=== PATIENT | male | born 1995 | race Caucasian/White ===

== ENCOUNTER 2017-03-18 19:37 | Emergency (ER) | payer BC ==
[~2017-03-18] VITALS: Ht 177.8 cm; Wt 83.9 kg
[~2017-03-18 19:37] MED LIST: AMOX-358 PO; NF-CIPDEC OT; TRAM-42 PO
--- OUTSIDE RECORDS SUMMARY | 2017-03-18 19:42 | XMS REPORT | Continuity of Care Document ---
Author Author [facility] Address Unknown Phone Unavailable Allergies Medications Problems Date Dx Coded Attending Type Code Diagnosis Diagnosed By 12/05/2015 BRENNA JOINER DO Ot H66.93 OTITIS MEDIA, UNSPECIFIED, BILATERAL 12/06/2015 BRENNA JOINER DO Ot H66.93 OTITIS MEDIA, UNSPECIFIED, BILATERAL Procedures Results Encounters ACCT No. Visit Date/Time Discharge Status Pt. Type Provider Facility Loc./Unit Complaint [id number] 11/07/2014 15:19:56 11/07/2014 23: 59:59 CLS Outpatient Brittney Jimenes [id number] 10/31/2014 16:51:53 10/31/2014 23: 59:59 CLS Outpatient Jerica De La Garza [id number] 04/16/2014 13:08:13 04/16/2014 23: 59:59 CLS Outpatient Brittney Jimenes [id number] 12/05/2015 19:58:00 2015 20:35:00 DIS Emergency BRENNA JOINER DO [facility] ER R EAR PAIN
[2017-03-18] MEDS ORDERED: ONDANSETRON 4 MG (ZOFRAN) ORAL DISSOLVE TAB ONE (19:49)
--- NOTE | 2017-03-18 19:51 | ED Lower Extremity ---
General Chief Complaint: Lower Extremity Stated Complaint: LT ANKLE INJ Source: patient Exam Limitations: no limitations History of Present Illness Time seen by provider: 19:50 Initial Comments To ER with pain to the left lateral ankle after playing basketball and inverting the left ankle. He was able to partially bear weight on this after the injury. No other injury. Onset: just prior to arrival Severity: moderate Pain/Injury Location: left ankle Modifying Factors: Worse With Movement Allergies and Home Medications Allergies Coded Allergies: No Known Drug Allergies (Unverified , 03/18/17) Home Medications Amoxicillin/Potassium Clav 1 Each Tablet, 1 EACH PO BID, #20 Prescribed by: BRENNA JOINER on 12/05/152033 Ciprofloxacin HCl/Dexameth 7.5 Ml Soln, 4 DROPS OT BID, #1 Prescribed by: BRENNA JOINER on 12/05/152033 Tramadol HCl 50 Mg Tablet, 50 MG PO Q4H, #20 Prescribed by: BRENNA JOINER on 12/05/152033 Constitutional: see HPI EENTM: see HPI Respiratory: no symptoms reported Cardiovascular: no symptoms reported Genitourinary: no symptoms reported Musculoskeletal: see HPI Skin: no symptoms reported Psychiatric/Neurological: No Symptoms Reported Past Fwwqoyi-Gvduks-Uyzqxk Hx Patient Social History Recent Foreign Travel: No Contact w/Someone Who Travel: No Surgeries HX Surgeries: No Respiratory Hx Respiratory Disorders: No Cardiovascular Hx Cardiac Disorders: No Neurological Hx Neurological Disorders: No Genitourinary Hx Genitourinary Disorders: No Gastrointestinal Hx Gastrointestinal Disorders: No Musculoskeletal Hx Musculoskeletal Disorders: No Endocrine Hx Endocrine Disorders: No HEENT HX ENT Disorders: No Cancer Hx Cancer: No Psychosocial Hx Psychiatric Problems: No Integumentary HX Skin/Integumentary Disorder: No Blood Transfusions Hx Blood Disorders: No Physical Exam Vital Signs Vital Sign - Last 12Hours 03/18/17 19:44 Temp 98.2 Pulse 100 Resp 20 B/P (MAP) 141/91 Pulse Ox 99 O2 Delivery Room Air Capillary Refill : General Appearance: WD/WN, no apparent distress HEENT: PERRL/EOMI, normal ENT inspection Neck: non-tender, full range of motion Respiratory: no respiratory distress, no accessory muscle use Gastrointestinal: normal bowel sounds, non tender, soft Hips: bilateral hip non-tender, bilateral hip normal inspection, bilateral hip normal range of motion Legs: bilateral leg non-tender, bilateral leg normal inspection, bilateral leg normal range of motion Knees: bilateral knee non-tender, bilateral knee normal inspection, bilateral knee normal range of motion Ankles: left ankle pain, left ankle soft tissue tenderness, left ankle swelling Feet: bilateral foot non-tender, bilateral foot normal inspection, bilateral foot normal range of motion, left foot other (distally, he is neurovascularly intact with a 2+ dorsalis pedis pulse and ability to sense and flex and extend his toes.) Neurologic/Psychiatric: alert, normal mood/affect, oriented x 3 Skin: normal color, warm/dry Progress/Results/Core Measures Results/Orders My Orders Orders - VIVIENNE ROMERO APRN Ankle, Left, 3 Views (03/18/17 19:48) Hydrocodone/Apap 5/325 Tablet (Lortab 5 (03/18/17 20:00) Ondansetron Oral Dissolve Tab (Zofran (03/18/17 20:00) Ondansetron Oral Dissolve Tab (Zofran (03/18/17 19:49) Medications Given in ED Current Medications Medications Dose Ordered Sig/Cayla Route Start Time Stop Time Status Last Admin Dose Admin Acetaminophen/ Hydrocodone Bitart 1 tab ONCE ONCE PO 03/18/17 20:00 03/18/17 20:01 DC 03/18/17 19:54 1 TAB Ondansetron HCl 4 mg ONCE ONCE PO 03/18/17 20:00 03/18/17 20:01 DC 03/18/17 19:56 4 MG Vital Signs/I&O Vital Sign - Last 12Hours 03/18/17 19:44 Temp 98.2 Pulse 100 Resp 20 B/P (MAP) 141/91 Pulse Ox 99 O2 Delivery Room Air Departure Impression Impression: Primary Impression: Ankle sprain Disposition: HOME, SELF-CARE Condition: Stable (liver abscess) Departure-Patient Inst. Decision time for Depature: 20:05 Referrals: NO,LOCAL PHYSICIAN (PCP/Family) Primary Care Physician Patient Instructions: Ankle Sprain (DC) Add. Discharge Instructions: 1. Return to ER for any concerns 2. Keep the foot elevated for the next 2 days as much as possible to help reduce swelling. Wear the Fracisco bandage help provide some compression reduce swelling as much as possible for the next week and use crutches as needed with weightbearing. Tylenol and Motrin for pain control. If pain persists beyond 2 weeks you should follow-up with your doctor to discuss an MRI to evaluate the ligamentous structures of the ankle. All discharge instructions reviewed with patient and/or family. Voiced understanding. VIVIENNE ROMERO [employer] Mar 18, 2017 19:51
[2017-03-18] MEDS ORDERED: ONDANSETRON 4 MG (ZOFRAN) ORAL DISSOLVE TAB PO ONE (20:00)
[2017-03-18] MEDS ORDERED: HYDROcodone/APAP 5 MG/325 MG (LORTAB) TAB PO ONE (20:00)
--- NOTE | 2017-03-18 20:23 | Diagnostic Imaging Report ---
INDICATION: Twisted left ankle playing basketball. Swelling laterally. EXAMINATION: Three views of the left ankle were obtained. FINDINGS: No fracture, dislocation or other acute bony abnormality. The ankle joint is not widened. There is swelling, laterally. IMPRESSION: Swelling. No fracture. Dictated by: Dictated on workstation # [id number]
[2017-03-18 20:28] VITALS: BP 0/0
== END 2017-03-18 20:28 | disposition home or self-care (01) ==
LOC: EDUNIT# 19:37 → ER 19:38
DX: S93.402A Sprain of unspecified ligament of left ankle, initial encounter (principal); X50.9XXA Other and unspecified overexertion or strenuous movements or postures, initial encounter; Y93.67 Activity, basketball; Y92.310 Basketball court as the place of occurrence of the external cause; Y99.8 Other external cause status
CPT/HCPCS: 73610; 99283